=== PATIENT | female | born 1990 | race Caucasian/White ===

== ENCOUNTER 2019-08-20 13:50 | Emergency (ER) | payer SELFPAY ==
[2019-08-20 14:07] VITALS: BP 111/66; PULSE 95; RESP 16; O2SAT 100
--- NOTE | 2019-08-20 16:34 | ED.WOUNDLAC ---
HPI - Wound/Laceration General Chief Complaint: Wound/Laceration Stated Complaint: right ankle lac Time Seen by Provider: 08/20/19 14:39 Source: patient Mode of arrival: ambulatory Limitations: no limitations History of Present Illness HPI narrative: Patient presents with chief complaint of laceration to the lateral aspect of her right ankle that she sustained while moving objects in her home on a piece of glass. Patient denies any bony tenderness. Patient denies any loss of range of motion to the extremity. Patient denies any other injuries. Related Data Allergies Allergy/AdvReac Type Severity Reaction Status Date / Time No Known Allergies Allergy Verified 08/20/19 14:44 Review of Systems Review of Systems: Narrative: CONSTITUTIONAL: Denies fever, chills, or sweats. EYES: Denies visual changes, redness, or discharge. ENT: Denies rhinorrhea, congestion, sore throat, or otalgia. CARDIOVASCULAR: Denies chest pain, palpitations, or edema. RESPIRATORY: Denies cough or dyspnea. GASTROINTESTINAL: Denies abdominal pain, nausea, vomiting, or diarrhea. GENITOURINARY: Denies dysuria or hematuria. SKIN: Reports laceration denies rash or itching. MUSCULOSKELETAL: Denies back pain, joint pain, or myalgia. NEUROLOGIC: Denies headache, numbness, dizziness, or weakness. PSYCHIATRIC: Denies anxiety or depression. PMFSH Social History Social History Gender identity (if verbalized by the patient): Male Exam Narrative: Exam Narrative: GENERAL: Well-appearing, well-nourished, and in no acute distress. HEAD: Normocephalic, atraumatic. EYES: PERRLA and EOMI. ENT: Nares clear, no rhinorrhea or epistaxis. Mucous membranes moist. Oropharynx without tonsillar hypertrophy exudate or other lesions. Bilateral TMs pearly jackson nonbulging NECK: Supple. No adenopathy or masses. No carotid bruits or JVD CHEST: Clear to auscultation. No respiratory distress. No wheezes rales or rhonchi HEART: Regular rate and rhythm. No murmur heard. Normal peripheral pulses. ABDOMEN: Soft, nontender, nondistended, normal active bowel sounds. EXTREMITIES: Normal range of motion. No edema. SKIN: 6 cm laceration over the lateral aspect of right ankle. Minimal bleeding. Warm, dry, no rash. NEURO: No focal deficits. Alert and oriented x3. PSYCH: Normal mood and affect. Course Vital Signs Vital signs: Vital Signs Pulse Rate 95 08/20/19 14:07 Respiratory Rate 16 08/20/19 14:07 Blood Pressure 111/66 08/20/19 14:07 Pulse Oximetry 100 08/20/19 14:07 Pulse Rate 95 08/20/19 14:07 Respiratory Rate 16 08/20/19 14:07 Blood Pressure 111/66 08/20/19 14:07 Pulse Oximetry 100 08/20/19 14:07 Procedures Laceration Laceration 1: Site: lower extremity Side (If applicable): right Size (cm): 6 Description: linear Depth: simple, single layer Local Anesthetic: lidocaine 1% Amount of anesthesia used (mL): 4 Pre-repair: irrigated extensively ====== Skin Level ====== Skin layer closed with: nylon Size (cm): 5-0 Number of sutures: 8 Technique: simple, interrupted ====== Subcutaneous Layer ====== ====== Muscle Layer ====== ====== Tendon Layer ====== MDM - Wound/Laceration MDM Narrative Medical decision making narrative: Patient denies any bony tenderness. Denies need for any imaging. Laceration repair well without any complications. Discussed laceration care and need for follow-up for suture removal. Differential Diagnosis Differential diagnosis: Likely laceration, abscess, abrasion and avulsion of skin Discharge Plan Discharge Clinical Impression: Laceration Patient Disposition: Home, Self-Care Condition: Improved Instructions: Antibiotic Form, Laceration (ED) Additional Instructions: You may shower and wash area with antibacterial soap but do not soak. Tylenol or Motrin for discomfort if you can tolerate them. Follow-up f
== END 2019-08-20 16:56 | disposition home or self-care (01) ==
PROVIDERS: Emergency Provider Emergency Medicine
DX: S91.011A Laceration without foreign body, right ankle, initial encounter (principal); W25.XXXA Contact with sharp glass, initial encounter
CPT/HCPCS: 12002; 70150; 99282; 99283

== ENCOUNTER 2022-03-01 14:14 | Outpatient (CLI) | payer BC, SELFPAY | END 2022-03-01 14:15 | disposition home or self-care (01) | PROVIDERS: PCP Family Medicine; Visit Provider Family Medicine | DX: E78.2 Mixed hyperlipidemia (principal); E55.9 Vitamin D deficiency, unspecified; Z68.41 Body mass index [BMI] 40.0-44.9, adult; D64.9 Anemia, unspecified | CPT/HCPCS: 36415 ==

== ENCOUNTER 2022-07-11 11:25 | Outpatient (CLI) | payer BC, SELFPAY ==
[2022-07-11 16:53] LABS: Kit Draw Collected
== END 2022-07-11 11:26 | disposition home or self-care (01) ==
LOC: ANHGOSHLAB 11:27
PROVIDERS: PCP Family Medicine; Visit Provider Family Medicine
DX: E55.9 Vitamin D deficiency, unspecified (principal); E78.2 Mixed hyperlipidemia; D64.9 Anemia, unspecified; Z00.00 Encounter for general adult medical examination without abnormal findings; Z68.41 Body mass index [BMI] 40.0-44.9, adult; E53.8 Deficiency of other specified B group vitamins
CPT/HCPCS: 36415